=== PATIENT | male | born 1980 | race Caucasian/White ===

== ENCOUNTER 2022-10-23 21:14 | Emergency (ER) | payer SELFPAY ==
[~2022-10-23] VITALS: Ht 188 cm; Wt 155.6 kg
[2022-10-23] MEDS ORDERED: ATORVASTATIN CA20 MG PO (21:47)
[2022-10-23] MEDS ORDERED: LISINOPRIL20 MG PO (21:47)
[2022-10-23] MEDS ORDERED: FLOMAX0.4 MG PO (23:12)
== END 2022-10-23 23:22 | disposition home or self-care (01) ==
LOC: ED 21:14
DX: N13.2 Hydronephrosis with renal and ureteral calculous obstruction (principal); I10 Essential (primary) hypertension; E78.00 Pure hypercholesterolemia, unspecified; Z79.899 Other long term (current) drug therapy
CPT/HCPCS: 36415; 74176; 80053; 81001; 85025; 96374; 96375; 96376; 99284-25; A9270; J1885; J2270; J7121